=== PATIENT | male | born 1975 | race Caucasian/White ===

== ENCOUNTER 2017-01-03 11:34 | Emergency (ER) | payer BC, MEDICAID ==
[2017-01-03 12:14] VITALS: BP 133/101
[2017-01-03] MEDS ORDERED: Sodium Chloride 0.9% 10 ML Syringe FLUSH PRN (12:53)
[2017-01-03] MEDS ORDERED: Sodium Chloride 0.9% 1,000 ML IV ONE (12:54)
[2017-01-03] MEDS ORDERED: Ondansetron 4 MG/2 ML SDV IVPUSH ONE (12:54)
--- NOTE | 2017-01-03 13:04 | EDM.PDOC ---
ED HPI GENERAL MEDICAL PROBLEM - General Chief Complaint: Abdominal Pain Stated Complaint: FLU-LIKE SYMPTOMS/DIZZINESS Time Seen by Provider: 01/03/17 13:26 Source of Information: Reports: Patient History Limitations: Reports: Intoxication - History of Present Illness INITIAL COMMENTS - FREE TEXT/NARRATIVE: Patient is a 41-year-old male who was sent from the walk-in clinic due to patient complaining of abdominal pain. Patient states symptoms started this past Sunday. Has had multiple episodes of diarrhea with no blood or melena. He has vomited a few times as well with no blood present. Pain is located to the periumbilical region that radiates to the right flank. He has no pain with urination. States he has been eating well and drinking plenty of fluids. States he missed a few days of work feeling like this. Has been tired, fatigued, and sleeping more than usual. He does have a history of alcohol abuse. At approximately 7:00 this morning consumed one beer. Denies any fever/chills, SOB , chest pain, dizziness, painful urination, numbness tingling to extremities, or any additional complaints. Current medications include: Rifaximin, phenytoin, Librium, gabapentin, meloxicam, lactulose. Patient states he's taken all his home medications as prescribed. Past medical history includes: Cirrhosis, elevated ammonia, chronic back pain, traumatic brain injury, seizures, anxiety, and depression Right Flank Pain Score (Numeric/FACES): 4 - Related Data Allergies Allergy/AdvReac Type Severity Reaction Status Date / Time acetaminophen Allergy Hives Verified 01/03/17 12:42 [From Imani] cephalexin Allergy Itching Verified 01/03/17 12:42 levofloxacin Allergy Itching Verified 01/03/17 12:42 propoxyphene Allergy Hives Verified 01/03/17 12:42 Home Meds: Home Meds Phenytoin 200 mg PO BID 12/07/15 [History] Rifaximin [Xifaxan] 550 mg PO BID 12/07/15 [History] chlordiazePOXIDE [Librium] 10 mg PO QID PRN 04/06/16 [History] Gabapentin [Neurontin] 600 mg PO BID 05/30/16 [History] Lactulose [Cephulac] 20 gm PO ASDIRECTED 05/30/16 [History] Meloxicam [Mobic] 15 mg PO DAILY 05/30/16 [History] Past Medical History Gastrointestinal History: Reports: Cirrhosis Other Gastrointestinal History: elevated ammonia Musculoskeletal History: Reports: Back Pain, Chronic, Other (See Below) Other Musculoskeletal History: herniated disc in his back Neurological History: Reports: Brain Injury, Head Trauma, Seizure Psychiatric History: Reports: Addiction, Anxiety, Depression Other Dermatologic History: Acne - Past Surgical History HEENT Surgical History: Reports: Tonsillectomy Social & Family History - Family History Family Medical History: Noncontributory - Tobacco Use Smoking Status *Q: Current Every Day Smoker Years of Tobacco use: 15 Packs/Tins Daily: 0.5 Used Tobacco, but Quit: No - Caffeine Use Caffeine Use: Reports: Soda - Alcohol Use Days Per Week of Alcohol Use: 7 Number of Drinks Per Day: 8 Total Drinks Per Week: 56 - Recreational Drug Use Recreational Drug Use: No Drug Use in Last 12 Months: No Recreational Drug Type: Reports: Marijuana/Hashish Other Recreational Drug Type: did when he was younger but no more drugs Recreational Drug Use Frequency: Rarely - Living Situation & Occupation Living situation: Reports: Single, Alone Occupation: Employed ED ROS GENERAL - Review of Systems Review Of Systems: See Below Constitutional: Reports: Malaise, Fatigue, Decreased Appetite. Denies: Fever, Chills HEENT: Reports: No Symptoms Respiratory: Denies: Shortness of Breath, Cough, Sputum Cardiovascular: Denies: Chest Pain, Dyspnea on Exertion, Palpitations GI/Abdominal: Reports: Abdominal Pain, Diarrhea, Decreased Appetite, Nausea, Vomiting. Denies: Black Stool, Bloody Stool, Constipation, Difficulty Swallowing, Hematemesis, Hematochezia, Melena : Reports: No Symptoms Musculoskeletal: Reports: Other (low back pain bilaterally) Skin: Reports: No Symptoms Neurological: Reports: No Symptoms ED EXAM, GI/ABD - Physical Exam Exam: See Below Exam Limited By: Intoxication General Appearance: Alert, WD/WN, No Apparent Distress, Other (Laying in bed drinking coke. ) Ears: Hearing Grossly Normal Nose: Normal Inspection Throat/Mouth: Normal Voice, No Airway Compromise Neck: Normal Inspection, Supple Respiratory/Chest: No Respiratory Distress, Lungs Clear, Normal Breath Sounds, No Accessory Muscle Use, Chest Non-Tender Cardiovascular: Normal Peripheral Pulses, Regular Rate, Rhythm, No Murmur GI/Abdominal Exam: Soft, Non-Tender (generalized), No Distention, Abnormal Bowel Sounds (hyperactive) Back Exam: Normal Inspection, Full Range of Motion. No: Paraspinal Tenderness, Vertebral Tenderness Extremities: Normal Inspection, Normal Range of Motion, Non-Tender Neurological: Alert, Oriented, CN II-XII Intact, Normal Cognition, No Motor/ Sensory Deficits Psychiatric: Normal Affect, Normal Mood Skin Exam: Warm, Dry, Intact, Normal Color Course - Vital Signs Last Recorded V/S: Last Vital Signs Temp 97.7 F 01/03/17 12:12 Pulse 91 01/03/17 12:12 Resp 20 01/03/17 12:12 BP 133/101 H 01/03/17 12:12 Pulse Ox 98 01/03/17 12:12 - Orders/Labs/Meds Labs: Laboratory Tests 01/03/17 01/03/17 01/03/17 Range/Units 12:30 12:30 13:00 WBC 8.15 (4.23-9.07) K/mm3 RBC 5.44 (4.63-6.08) M/mm3 Hgb 18.0 H (13.7-17.5) gm/L Hct 49.6 (40.1-51.0) % MCV 91.2 (79.0-92.2) fl MCH 33.1 H (25.7-32.2) pg MCHC 36.3 H (32.2-35.5) g/dl RDW Std Deviation 39.8 (35.1-43.9) fL Plt Count 199 (163-337) K/mm3 MPV 9.8 (9.4-12.3) fl Neut % (Auto) 44.7 (34.0-67.9) % Lymph % (Auto) 43.2 (21.8-53.1) % [place] % (Auto) 8.7 (5.3-12.2) % Eos % (Auto) 2.8 (0.8-7.0) Baso % (Auto) 0.5 (0.1-1.2) % Neut # (Auto) 3.64 (1.78-5.38) K/mm3 Lymph # (Auto) 3.52 (1.32-3.57) K/mm3 [place] # (Auto) 0.71 (0.30-0.82) K/mm3 Eos # (Auto) 0.23 (0.04-0.54) K/mm3 Baso # (Auto) 0.04 (0.01-0.08) K/mm3 PT (8.0-13.0) SECONDS INR Sodium (136-145) mEq/L Potassium (3.5-5.1) mEq/L Chloride (98-107) mEq/L Carbon Dioxide (21-32) mEq/L Anion Gap (5-15) BUN (7-18) mg/dL Creatinine (0.7-1.3) mg/dL Est Cr Clr Drug Dosing mL/min Estimated GFR (MDRD) (>60) mL/min BUN/Creatinine Ratio (14-18) Glucose (74-106) mg/dL Calcium (8.5-10.1) mg/dL Total Bilirubin (0.2-1.0) mg/dL AST (15-37) U/L ALT (16-63) U/L Alkaline Phosphatase (46-116) U/L C-Reactive Protein (<1.0) mg/dL Total Protein (6.4-8.2) g/dl Albumin (3.4-5.0) g/dl Globulin gm/dL Albumin/Globulin Ratio (1-2) Lipase (73-393) U/L TSH 3rd Generation (0.358-3.74) uIU/mL Urine Color Yellow (Yellow) Urine Appearance Clear (Clear) Urine pH 6.0 (5.0-8.0) Ur Specific [place] 1.015 (1.005-1.030) Urine Protein Negative (Negative) Urine Glucose (UA) Negative (Negative) Urine Ketones Negative (Negative) Urine Occult Blood Negative (Negative) Urine Nitrite Negative (Negative) Urine Bilirubin Negative (Negative) Urine Urobilinogen 0.2 (0.2-1.0) Ur Leukocyte Esterase Negative (Negative) Urine RBC Not seen (0-5) /hpf Urine WBC Not seen (0-5) /hpf Ur Epithelial Cells Not seen (0-5) /hpf Urine Bacteria Not seen (FEW) /hpf Urine Mucus Not seen (FEW) /hpf Urine Opiates Screen Negative (NEGATIVE) Ur Buprenorphine Scrn Negative (NEGATIVE) Ur Oxycodone Screen Negative (NEGATIVE) Urine Methadone Screen Negative (NEGATIVE) Ur Propoxyphene Screen Negative (NEGATIVE) Ur Barbiturates Screen Presumptive positive H (NEGATIVE) Ur Tricyclics Screen Negative (NEGATIVE) Ur Phencyclidine Scrn Negative (NEGATIVE) Ur Amphetamine Screen Negative (NEGATIVE) U Methamphetamines Scrn Negative (NEGATIVE) U Benzodiazepines Scrn Negative (NEGATIVE) U Cocaine Metab Screen Negative (NEGATIVE) U Marijuana (THC) Screen Negative (NEGATIVE) Ethyl Alcohol (0.00) gm% 01/03/17 01/03/17 Range/Units 13:00 13:00 WBC (4.23-9.07) K/mm3 RBC (4.63-6.08) M/mm3 Hgb (13.7-17.5) gm/L Hct (40.1-51.0) % MCV (79.0-92.2) fl MCH (25.7-32.2) pg MCHC (32.2-35.5) g/dl RDW Std Deviation (35.1-43.9) fL Plt Count (163-337) K/mm3 MPV (9.4-12.3) fl Neut % (Auto) (34.0-67.9) % Lymph % (Auto) (21.8-53.1) % [place] % (Auto) (5.3-12.2) % Eos % (Auto) (0.8-7.0) Baso % (Auto) (0.1-1.2) % Neut # (Auto) (1.78-5.38) K/mm3 Lymph # (Auto) (1.32-3.57) K/mm3 [place] # (Auto) (0.30-0.82) K/mm3 Eos # (Auto) (0.04-0.54) K/mm3 Baso # (Auto) (0.01-0.08) K/mm3 PT 12.6 (8.0-13.0) SECONDS INR 1.15 Sodium 139 (136-145) mEq/L Potassium 3.2 L (3.5-5.1) mEq/L Chloride 103 (98-107) mEq/L Carbon Dioxide 25 (21-32) mEq/L Anion Gap 14.2 (5-15) BUN 9 (7-18) mg/dL Creatinine 0.9 (0.7-1.3) mg/dL Est Cr Clr Drug Dosing 97.02 mL/min Estimated GFR (MDRD) > 60 (>60) mL/min BUN/Creatinine Ratio 10.0 L (14-18) Glucose 150 H (74-106) mg/dL Calcium 8.4 L (8.5-10.1) mg/dL Total Bilirubin 0.5 (0.2-1.0) mg/dL AST 32 (15-37) U/L ALT 25 (16-63) U/L Alkaline Phosphatase 86 (46-116) U/L C-Reactive Protein < 0.2 (<1.0) mg/dL Total Protein 6.7 (6.4-8.2) g/dl Albumin 3.9 (3.4-5.0) g/dl Globulin 2.8 gm/dL Albumin/Globulin Ratio 1.4 (1-2) Lipase 74 (73-393) U/L TSH 3rd Generation 1.286 (0.358-3.74) uIU/mL Urine Color (Yellow) Urine Appearance (Clear) Urine pH (5.0-8.0) Ur Specific [place] (1.005-1.030) Urine Protein (Negative) Urine Glucose (UA) (Negative) Urine Ketones (Negative) Urine Occult Blood (Negative) Urine Nitrite (Negative) Urine Bilirubin (Negative) Urine Urobilinogen (0.2-1.0) Ur Leukocyte Esterase (Negative) Urine RBC (0-5) /hpf Urine WBC (0-5) /hpf Ur Epithelial Cells (0-5) /hpf Urine Bacteria (FEW) /hpf Urine Mucus (FEW) /hpf Urine Opiates Screen (NEGATIVE) Ur Buprenorphine Scrn (NEGATIVE) Ur Oxycodone Screen (NEGATIVE) Urine Methadone Screen (NEGATIVE) Ur Propoxyphene Screen (NEGATIVE) Ur Barbiturates Screen (NEGATIVE) Ur Tricyclics Screen (NEGATIVE) Ur Phencyclidine Scrn (NEGATIVE) Ur Amphetamine Screen (NEGATIVE) U Methamphetamines Scrn (NEGATIVE) U Benzodiazepines Scrn (NEGATIVE) U Cocaine Metab Screen (NEGATIVE) U Marijuana (THC) Screen (NEGATIVE) Ethyl Alcohol 0.23 (0.00) gm% Meds: Medications Discontinued Medications Generic Name Dose Route Start Last Admin Trade Name Freq PRN Reason Stop Dose Admin Sodium Chloride 1,000 mls @ 999 mls/hr 01/03/17 12:54 01/03/17 13:12 Normal Saline IV 01/03/17 13:54 999 mls/hr ONETIME ONE Administration Ondansetron HCl 4 mg 01/03/17 12:54 01/03/17 13:13 Zofran IVPUSH 01/03/17 12:55 4 mg ONETIME ONE Administration Sodium Chloride 10 ml 01/03/17 12:53 01/03/17 13:14 Saline Flush FLUSH 10 ml ASDIRECTED PRN Administration Keep Vein Open - Re-Assessments/Exams Free Text/Narrative Re-Assessment/Exam: IV established with normal saline and Zofran 4 mg IVP. Initial labs and studies include CBC, chem 14, CRP, lipase, PTT/INR, TSH, serum EtOH, urine drug tox, UA , stool WBC's, and 2 view of the abdomen. 2 view of the abdomen reviewed: Unremarkable two view abdominal x-ray. Labs reviewed: CBC essentially normal, PT/INR 1.15, sodium 139, potassium 3.2, creatinine 0.9, glucose 150, CRP less than 0.2, lipase 74, TSH 1.286, toxicology positive for barbiturates, and EtOH is 0.23. UA negative for any concerning findings. Patient is unaware how much alcohol he has been drinking. States he is quite surprised that the blood alcohol levels are that high. States he does not want any help for his alcoholism. He is ready to be discharged home. Ride is being arranged. Discharge instructions as documented. Patient was not able to provide a stool sample. Departure - Departure Time of Disposition: 15:19 Disposition: Home, Self-Care 01 Condition: Good Clinical Impression: Alcohol dependence, Alcohol abuse, Hypokalemia Abdominal pain Qualifiers: Abdominal location: generalized Qualified Code(s): R10.84 - Generalized abdominal pain Diarrhea Qualifiers: Diarrhea type: unspecified type Qualified Code(s): R19.7 - Diarrhea, unspecified Alcohol intoxication Qualifiers: Complication of substance-induced condition: with unspecified complication Qualified Code(s): F10.929 - Alcohol use, unspecified with intoxication, unspecified - Discharge Information Instructions: Abdominal Pain, Adult, [id number] Referrals: Gee Reynoso MD [Primary Care Provider] - Forms: ED Department Discharge Additional Instructions: Refrain from alcohol use. Push the fluids. Eat a well-balanced diet. Follow-up with her PCP and of this week or first part of next week for reevaluation. No driving this evening since are intoxicated with alcohol.
--- NOTE | 2017-01-03 15:10 | CR ---
Abdomen: Supine and upright views of the abdomen were obtained. Comparison: Previous abdominal x-ray of 12/31/09. No free air is seen. Bowel gas pattern appears normal. Calcifications are seen within the pelvis which are compatible with phleboliths. Bony structures are within normal limits for the patient's age. Impression: 1. Unremarkable two-view abdominal x-ray. Diagnostic code #2
== END 2017-01-03 15:25 | disposition home or self-care (01) ==
LOC: JD.ED 11:34
DX: R10.84 Generalized abdominal pain (principal); R19.7 Diarrhea, unspecified; F10.929 Alcohol use, unspecified with intoxication, unspecified; E87.6 Hypokalemia; F41.9 Anxiety disorder, unspecified; F17.210 Nicotine dependence, cigarettes, uncomplicated; F32.9 Major depressive disorder, single episode, unspecified; Z98.890 Other specified postprocedural states; Z79.899 Other long term (current) drug therapy; Z88.8 Allergy status to other drugs, medicaments and biological substances; Z88.1 Allergy status to other antibiotic agents; Z88.6 Allergy status to analgesic agent
CPT/HCPCS: 36415; 74020; 80053; 80306; 81001; 83690; 84443; 85025; 85610; 86140; 96361; 96374; 99284; G0480; J2405; J7040; J7050

== ENCOUNTER 2017-01-29 07:37 | Emergency (ER) | payer BC, MEDICAID ==
[2017-01-29 08:01] VITALS: BP 140/91
[2017-01-29] MEDS ORDERED: Acetaminophen/HYDROcodone 325-5 MG Tab PO ONE (08:19)
--- NOTE | 2017-01-29 09:10 | EDM.PDOC ---
ED HPI GENERAL MEDICAL PROBLEM - General Chief Complaint: Lower Extremity Injury/Pain Stated Complaint: LEFT HIP PAIN FROM FALL LAST NIGHT Time Seen by Provider: 01/29/17 07:55 Source of Information: Reports: Patient, RN Notes Reviewed - History of Present Illness INITIAL COMMENTS - FREE TEXT/NARRATIVE: 41 year old male with L hip pain, fell against a step last evening with blow to lateral aspect of left hip. He has fairly severe pain at rest and more severe discomfort with standing or walking. He denies pain or injury to the head and neck chest or back. It sounds like he has been taking some Aleve with minimal relief. He is very concerned about difficulty going to work for his usual afternoon to 3 in the morning shift. Left Hip Pain Score (Numeric/FACES): 10 - Related Data Allergies Allergy/AdvReac Type Severity Reaction Status Date / Time acetaminophen Allergy Hives Verified 01/29/17 08:00 [From Jose-N] cephalexin Allergy Itching Verified 01/29/17 08:00 levofloxacin Allergy Itching Verified 01/29/17 08:00 propoxyphene Allergy Hives Verified 01/29/17 08:00 Home Meds: Home Meds Phenytoin 200 mg PO BID 12/07/15 [History] Rifaximin [Xifaxan] 550 mg PO BID 12/07/15 [History] chlordiazePOXIDE [Librium] 10 mg PO QID PRN 04/06/16 [History] Lactulose [Cephulac] 20 gm PO ASDIRECTED 05/30/16 [History] Meloxicam [Mobic] 15 mg PO DAILY 05/30/16 [History] Past Medical History HEENT History: Reports: Impaired Vision Gastrointestinal History: Reports: Cirrhosis Other Gastrointestinal History: elevated ammonia Musculoskeletal History: Reports: Back Pain, Chronic, Other (See Below) Other Musculoskeletal History: herniated disc in his back Neurological History: Reports: Brain Injury, Head Trauma, Seizure Psychiatric History: Reports: Addiction, Anxiety, Depression Other Dermatologic History: Acne - Past Surgical History HEENT Surgical History: Reports: Tonsillectomy Social & Family History - Family History Family Medical History: Noncontributory - Tobacco Use Smoking Status *Q: Current Every Day Smoker Years of Tobacco use: 20 Packs/Tins Daily: 0.5 Used Tobacco, but Quit: No - Caffeine Use Caffeine Use: Reports: Soda - Alcohol Use Days Per Week of Alcohol Use: 7 Number of Drinks Per Day: 8 Total Drinks Per Week: 56 - Recreational Drug Use Recreational Drug Use: No Drug Use in Last 12 Months: No Recreational Drug Type: Reports: Marijuana/Hashish Other Recreational Drug Type: did when he was younger but no more drugs Recreational Drug Use Frequency: Rarely - Living Situation & Occupation Living situation: Reports: Single, Alone Occupation: Employed Review of Systems - Review of Systems Review Of Systems: See Below Constitutional: Reports: No Symptoms Eyes: Reports: No Symptoms Mouth/Throat: Reports: No Symptoms Respiratory: Denies: Shortness of Breath Cardiovascular: Denies: Chest Pain GI/Abdominal: Denies: Abdominal Pain, Nausea, Vomiting Musculoskeletal: Reports: Joint Pain. Denies: Back Pain (Left hip, lateral aspect) Skin: Reports: No Symptoms Neurological: Reports: No Symptoms ED EXAM, GENERAL - Physical Exam Exam: See Below General Appearance: Alert, Moderate Distress Nose: Normal Inspection Throat/Mouth: Normal Inspection Head: Atraumatic. No: Facial Swelling Neck: Supple, Full Range of Motion Respiratory/Chest: No Respiratory Distress, Lungs Clear, Normal Breath Sounds Cardiovascular: Regular Rate, Rhythm Extremities: Leg Pain (Lateral aspect left hip, no bruising or swelling visible , no visible deformity, quite severe pain with motion, pelvis nontender) Neurological: Alert, Oriented, No Motor/Sensory Deficits Skin Exam: Warm, Dry, Normal Color. No: Ecchymosis Course - Vital Signs Last Recorded V/S: Last Vital Signs Temp 98.0 F 01/29/17 07:55 Pulse 99 01/29/17 07:55 Resp 16 01/29/17 07:55 BP 140/91 H 01/29/17 07:55 Pulse Ox 95 01/29/17 07:55 - Orders/Labs/Meds Orders: Active Orders 24 hr Category Date Time Status Hip Min 2V or 3V Lt [CR] Stat Exams 01/29/17 08:23 Taken Meds: Medications Discontinued Medications Generic Name Dose Route Start Last Admin Trade Name Freq PRN Reason Stop Dose Admin Hydrocodone Bitart/Acetaminophen 1 tab 01/29/17 08:19 01/29/17 08:35 [place] 325-5 Mg PO 01/29/17 08:20 1 tab ONETIME ONE Administration - Re-Assessments/Exams Free Text/Narrative Re-Assessment/Exam: 01/29/17 09:29 X-rays of the hip show no fracture Departure - Departure Time of Disposition: 09:08 Disposition: Home, Self-Care 01 Condition: Fair Clinical Impression: Contusion of hip Fall Qualifiers: Encounter type: initial encounter Qualified Code(s): W19.XXXA - Unspecified fall, initial encounter - Discharge Information Referrals: Rosa Peralta [employer] [Primary Care Provider] - Forms: ED Department Discharge, ED Return to Work/School Form Additional Instructions: rest leg and hip, ice packs 3 to 4 times daily today and tomorrow, continue aleve 1 tab 3 times daily or 2 tabs twice daily with food, off work until Weds , see your regular medical provider if not much better within 2 to 3 days as expected. - My Orders Last 24 Hours: My Active Orders 01/29/17 08:23 Hip Min 2V or 3V Lt [CR] Stat - Assessment/Plan Last 24 Hours: My Active Orders 01/29/17 08:23 Hip Min 2V or 3V Lt [CR] Stat
--- NOTE | 2017-01-29 10:04 | CR ---
Left hip: AP and frog-leg lateral views of the left hip were obtained. Comparison: No prior hip exam. Joint space within the left hip is preserved. No fracture or other bony abnormality is identified. Impression: 1. No abnormality is identified on two-view left hip exam. Diagnostic code #1
== END 2017-01-29 09:45 | disposition home or self-care (01) ==
LOC: JD.ED 07:37
DX: S70.02XA Contusion of left hip, initial encounter (principal); F41.9 Anxiety disorder, unspecified; F17.210 Nicotine dependence, cigarettes, uncomplicated; Z88.6 Allergy status to analgesic agent; Z88.1 Allergy status to other antibiotic agents; Z79.899 Other long term (current) drug therapy; W19.XXXA Unspecified fall, initial encounter
CPT/HCPCS: 73502; 99284; A9270; 99283